=== PATIENT | female | born 1985 | race Caucasian/White ===

== ENCOUNTER → 2018-05-07 | Outpatient (CLI) | payer OTHER | LOC: OD 13:10 | PROVIDERS: ATTEND Obstetrics & Gynecology | DX: R11.2 Nausea with vomiting, unspecified (principal); Z64.0 Problems related to unwanted pregnancy | CPT/HCPCS: 36415; 84702 ==

== ENCOUNTER 2018-07-16 17:49 | Emergency (ER) | payer OTHER ==
--- NOTE | 2018-07-16 19:31 | ER Document Report ---
ED Medical Screen (RME) - General Chief Complaint: Abdominal Pain Stated Complaint: ABDOMINAL PAIN,UPPER BACK PAIN Time Seen by Provider: 07/16/18 19:20 Notes: 32-year-old female to the emergency department complaining of right upper quadrant pain. Patient also states she is and having pressure in the lower pelvic region. Most of the pain is located in the right upper quadrant. Still has a gallbladder. Does not know how far along she is in her . No vaginal bleeding. I have greeted and performed a rapid initial assessment of this patient. A comprehensive ED assessment and evaluation of the patient, analysis of test results and completion of the medical decision making process will be conducted by additional ED providers. TRAVEL OUTSIDE OF THE [place] IN LAST 30 DAYS: No - Related Data Allergies/Adverse Reactions: No Known Allergies Allergy (Unverified 06/03/16 21:26) Past Medical History - Social History Chew tobacco use (# tins/day): No Frequency of alcohol use: None Drug Abuse: None Pulmonary Medical History: Reports: Hx Asthma, Hx Bronchitis Renal/ Medical History: Denies: Hx Peritoneal Dialysis Past Surgical History: Reports: Hx Section - x2 - Immunizations Hx Diphtheria, Pertussis, Tetanus Vaccination: Yes Physical Exam - Vital signs Vitals: Temp Pulse Resp BP Pulse Ox 97.3 F 68 20 128/68 H 100 07/16/18 18:23 07/16/18 18:23 07/16/18 18:23 07/16/18 18:23 07/16/18 18:23 - Abdominal Tenderness: Tender - Right upper quadrant tenderness Course - Vital Signs Vital signs: Temp Pulse Resp BP Pulse Ox 97.3 F 68 20 128/68 H 100 07/16/18 18:23 07/16/18 18:23 07/16/18 18:23 07/16/18 18:23 07/16/18 18:23 Doctor's Discharge - Discharge Referrals: LAMAR MOORE MD [Primary Care Provider] - Follow up as needed
[2018-07-16 19:52] LABS: ABSOLUTE BASOPHILS # (AUTO) 0.1 10^3/uL (0.0-0.2); ABSOLUTE EOSINOPHILS # (AUTO) 0.2 10^3/uL (0.0-0.6); ABSOLUTE MONOCYTES (AUTO) 0.7 10^3/uL (0.1-1.4); ABSOLUTE NEUT (AUTO) 8.7 10^3/uL (1.7-8.2); BASOPHILS % (AUTO) 0.6 % (0-2); EOSINOPHILS % (AUTO) 2.1 % (0-6); HEMATOCRIT 40.8 % (36.0-47.0); HEMOGLOBIN 13.9 g/dL (12.0-15.5); LYMPHOCYTES % (AUTO) 16.7 % (13-45); MEAN CORPUSCULAR HEMOGLOBIN 31.3 pg (27.0-33.4); MEAN CORPUSCULAR HGB CONC 34.2 g/dL (32.0-36.0); MEAN CORPUSCULAR VOLUME 92 fl (80-97); MONOCYTES % (AUTO) 6.3 % (3-13); PLATELET COUNT 270 10^3/uL (150-450); RED BLOOD COUNT 4.46 10^6/uL (3.72-5.28); RED CELL DISTRIBUTION WIDTH 13.7 % (11.5-14.0); SEGMENTED NEUTROPHILS % (AUTO) 74.3 % (42-78); TOTAL CELLS COUNTED % (AUTO) 100 %; WHITE BLOOD COUNT 11.7 10^3/uL (4.0-10.5)
[2018-07-16 19:57] LABS: APPEARANCE,URINE SLIGHTLY-CLOUDY; BILIRUBIN,URINE NEGATIVE (NEGATIVE); COLOR,URINE YELLOW; GLUCOSE, URINE NEGATIVE (NEGATIVE); KETONES,URINE TRACE mg/dL (NEGATIVE); LEUKOCYTE ESTERASE,URINE NEGATIVE (NEGATIVE); NITRITE,URINE NEGATIVE (NEGATIVE); PROTEIN,URINE NEGATIVE (NEGATIVE); URINE SPECIFIC GRAVITY 1.016; UROBILINOGEN,URINE NEGATIVE mg/dL (<2.0)
[2018-07-16 20:11] LABS: ALANINE AMINOTRANSFERASE 36 U/L (9-52); ALBUMIN 4.5 g/dL (3.5-5.0); ALKALINE PHOSPHATASE 53 U/L (38-126); ANION GAP 10 (5-19); ASPARTATE AMINO TRANSFERASE 24 U/L (14-36); BILIRUBIN,DIRECT 0.2 mg/dL (0.0-0.4); BILIRUBIN,TOTAL 0.5 mg/dL (0.2-1.3); BLOOD UREA NITROGEN 12 mg/dL (7-20); CALCIUM 9.5 mg/dL (8.4-10.2); CARBON DIOXIDE 24 mmol/L (22-30); CHLORIDE 103 mmol/L (98-107); GLUCOSE 85 mg/dL (75-110); LIPASE 69.5 U/L (23-300); POTASSIUM 4.4 mmol/L (3.6-5.0); TOTAL PROTEIN 7.2 g/dL (6.3-8.2)
--- NOTE | 2018-07-16 21:14 | RADIOLOGY REPORT (SQ) ---
US ABDOMEN LIMITED HISTORY: Right upper quadrant pain. COMPARISON: None. TECHNIQUE: Grayscale and color Doppler imaging of the right upper quadrant was performed. FINDINGS: The liver measures 11.6 cm. The liver has normal echotexture without focal lesion identified. The main portal vein has normal hepatopedal flow. No shadowing gallstones are seen. No pericholecystic fluid or gallbladder wall thickening. The common bile duct measures 2 mm. The pancreas is not visualized due to overlying bowel gas. The right kidney measures 10.2 cm in length, without hydronephrosis. The visualized portions of the IVC and aorta are patent. IMPRESSION: No cholelithiasis or acute cholecystitis.
--- NOTE | 2018-07-16 21:18 | RADIOLOGY REPORT (SQ) ---
US PELVIS HISTORY: Early . Pelvic pain. COMPARISON: None. TECHNIQUE: Grayscale, color Doppler, and spectral Doppler ultrasound images of the pelvis were obtained. FINDINGS: There is an intrauterine gestational sac with a yolk sac and pole visualized. The contour of the gestational sac is within normal limits. The crown-rump length measures 0.93 cm, which corresponds to 7 weeks 3 days of . The heart rate is 133 bpm. The right ovary measures 2.4 x 2.2 x 2.2 cm and contains normal color Doppler blood flow. The left ovary was not well visualized. There is no pelvic free fluid. IMPRESSION: 1. Single live IUP with estimated gestational age 7 weeks 3 days. 2. Unremarkable right ovary. Left ovary is poorly visualized.
--- NOTE | 2018-07-16 22:22 | ER Document Report ---
ED General - General Chief Complaint: Abdominal Pain Stated Complaint: ABDOMINAL PAIN,UPPER BACK PAIN Time Seen by Provider: 07/16/18 19:20 TRAVEL OUTSIDE OF THE [place] IN LAST 30 DAYS: No - HPI Patient complains to provider of: Abdominal pain Notes: Patient coming in for abdominal pain patient was seen by triage provider's notes provided below 2-year-old female to the emergency department complaining of right upper quadrant pain. Patient also states she is and having pressure in the lower pelvic region. Most of the pain is located in the right upper quadrant. Still has a gallbladder. Does not know how far along she is in her . No vaginal bleeding. Patient states that she recently moved to the area currently has not had any HAND PASTER care. Patient states she recently started taking vitamins. Patient states she is a . Patient upon my evaluation is resting right lateral recumbent position. Patient states no association with food with her pain. Denies any fevers chills denies any trauma - Related Data Allergies/Adverse Reactions: No Known Allergies Allergy (Unverified 06/03/16 21:26) Past Medical History - Social History Smoking Status: Never Smoker Chew tobacco use (# tins/day): No Frequency of alcohol use: None Drug Abuse: None Family History: Reviewed & Not Pertinent Patient has suicidal ideation: No Patient has homicidal ideation: No Pulmonary Medical History: Reports: Hx Asthma, Hx Bronchitis Renal/ Medical History: Denies: Hx Peritoneal Dialysis Past Surgical History: Reports: Hx Section - x2 - Immunizations Hx Diphtheria, Pertussis, Tetanus Vaccination: Yes Review of Systems - Review of Systems Constitutional: No symptoms reported EENT: No symptoms reported Cardiovascular: No symptoms reported Respiratory: No symptoms reported Gastrointestinal: Abdominal pain Genitourinary: No symptoms reported Female Genitourinary: No symptoms reported Musculoskeletal: No symptoms reported Skin: No symptoms reported Hematologic/Lymphatic: No symptoms reported Neurological/Psychological: No symptoms reported -: Yes All other systems reviewed and negative Physical Exam - Vital signs Vitals: Temp Pulse Resp BP Pulse Ox 97.3 F 68 20 128/68 H 100 07/16/18 18:23 07/16/18 18:23 07/16/18 18:23 07/16/18 18:23 07/16/18 18:23 Interpretation: Normal - General General appearance: Appears well, Alert - HEENT Head: Normocephalic, Atraumatic Eyes: Normal Pupils: PERRL - Respiratory Respiratory status: No respiratory distress Chest status: Nontender Breath sounds: Normal Chest palpation: Normal - Cardiovascular Rhythm: Regular Heart sounds: Normal auscultation Murmur: No - Abdominal Inspection: Normal Distension: No distension Bowel sounds: Normal Tenderness: Nontender Organomegaly: No organomegaly - Back Back: Normal, Nontender - Extremities General upper extremity: Normal inspection, Nontender, Normal color, Normal ROM, Normal temperature General lower extremity: Normal inspection, Nontender, Normal color, Normal ROM, Normal temperature, Normal weight bearing. No: Margarito's sign - Neurological Neuro grossly intact: Yes Cognition: Normal Orientation: AAOx4 [place] Coma Scale Eye Opening: Spontaneous Doris Coma Scale Verbal: Oriented [place] Coma Scale Motor: Obeys Commands Doris Coma Scale Total: 15 Speech: Normal Motor strength normal: LUE, RUE, LLE, RLE Sensory: Normal - Psychological Associated symptoms: Normal affect, Normal mood - Skin Skin Temperature: Warm Skin Moisture: Dry Skin Color: Normal Course - Re-evaluation Re-evalutation: 07/17/18 03:40 The patient presents with abdominal pain without signs of peritonitis or other life-threatening or serious etiology. The patient appears stable for discharge and has been instructed to return immediately if the symptoms worsen in any way, or in 8-12hr if not improved for re-evaluation. The patient has been instructed to return if the symptoms worsen or change in any way. - Vital Signs Vital signs: Temp Pulse Resp BP Pulse Ox 97.9 F 68 16 111/61 100 07/16/18 22:27 07/16/18 22:27 07/16/18 22:27 07/16/18 22:27 07/16/18 22:27 - Laboratory Result Diagrams: 07/16/18 19:38 07/16/18 19:38 Laboratory results interpreted by me: 07/16/18 07/16/18 07/16/18 19:38 19:38 19:38 WBC 11.7 H Absolute Neutrophils 8.7 H Beta HCG, Quant 85418.00 H Urine Ketones TRACE H Urine Blood SMALL H Discharge - Discharge Clinical Impression: Abdominal pain during Qualifiers: Trimester: first trimester Qualified Code(s): O26.891 - Other specified related conditions, first trimester Qualifiers: Weeks of gestation: less than 8 weeks Qualified Code(s): Z3A.01 - Less than 8 weeks gestation of Condition: Good Disposition: HOME, SELF-CARE Instructions: Abdominal Pain (OM), Constipation (OM), [employer], Observation for Appendicitis ([facility]), (OM) Additional Instructions: Your evaluation today does not reveal any critical pathology no signs of gallbladder disease no sign of any abnormalities in your lab work no signs of infection I would highly recommend he continue to drink plenty of fluids is also a possible underlying constipation. He may take Colace to help out with any constipation issues return to ER symptoms worsen. Prescriptions: Docusate Sodium [Colace 100 mg Capsule] 100 mg PO BID #60 capsule Referrals: LAMAR MOORE MD [Primary Care Provider] - Follow up as needed
[2018-07-16 22:29] VITALS: BP 111/61
== END 2018-07-16 22:30 | disposition home or self-care (01) ==
LOC: ER 17:49
DX: O26.891 Other specified pregnancy related conditions, first trimester (principal); R10.11 Right upper quadrant pain; O99.511 Diseases of the respiratory system complicating pregnancy, first trimester; J45.909 Unspecified asthma, uncomplicated; Z3A.01 Less than 8 weeks gestation of pregnancy
CPT/HCPCS: 36415; 76705; 76817; 80053; 81001; 83690; 84702; 85025; 99284